=== PATIENT | male | born 1935 | race Caucasian/White ===

== ENCOUNTER 2018-07-24 17:18 | Emergency (ER) | payer MEDICARE, OTHER ==
[2018-07-24 17:27] VITALS: BP 134/80
--- NOTE | 2018-07-24 17:55 | EDM.PDOC ---
ED HPI GENERAL MEDICAL PROBLEM - General Chief Complaint: Genitourinary Problem Stated Complaint: HEMATURIA Time Seen by Provider: 07/24/18 17:30 Source of Information: Reports: Patient History Limitations: Reports: No Limitations - History of Present Illness INITIAL COMMENTS - FREE TEXT/NARRATIVE: 82 YO WM presents to ER with 1 day history of painless hematuria. Pt reports he' s had 2 episodes of pink tinged urine since 2pm today. Pt denies any abdominal pain, no back pain, no urine frequency or urgency. Pt reports he takes Xarelto due to Afib. Pt denies any epistasis, no bloody stools and no skin changes or bruising. Pt denies fever/chills, no nausea/vomiting. Onset: Today Onset Date: 07/24/18 Onset Time: 14:00 Location: Reports: Generalized Severity: Mild Improves with: Reports: None Worsens with: Reports: None Associated Symptoms: Reports: No Other Symptoms - Related Data Allergies Allergy/AdvReac Type Severity Reaction Status Date / Time penicillin Allergy Hives Verified 07/24/18 18:37 Home Meds: Home Meds Alendronate [Fosamax] 70 mg PO RUFFIN@0600 02/24/15 [History] Dutasteride [Avodart] 0.5 mg PO BEDTIME 02/24/15 [History] Fluticasone/Salmeterol [Advair 100-50 Diskus] 1 puff INH QAM 02/24/15 [History] Multivitamin [Multi-Vitamin Daily] 1 tab PO QAM 02/24/15 [History] Ranitidine [Zantac] 150 mg PO BEDTIME 02/24/15 [History] Vit C/Alcides Ac/Lut/Copper/ZnOx [Preservision Lutein Softgel] 1 cap PO BID [History] Rivaroxaban [Xarelto] 20 mg PO DAILY@1800 #90 tablet 04/25/18 [Rx] Calcium Carbonate/Vitamin D3 [Os-Oli 500+D] 1 each PO BIDMEALS 05/12/18 [History ] Furosemide [Lasix] 10 mg PO DAILY 05/12/18 [History] Albuterol [Ventolin HFA] 1 puff INH Q4H PRN 07/24/18 [History] Carvedilol [Coreg] 25 mg PO DAILY 07/24/18 [History] Carvedilol [Coreg] 50 mg PO BEDTIME 07/24/18 [History] DULoxetine [Cymbalta] 30 mg PO DAILY 07/24/18 [History] Digoxin 125 mcg PO DAILY@1200 07/24/18 [History] Escitalopram [Lexapro] 10 mg PO DAILY 07/24/18 [History] Lisinopril 2.5 mg PO DAILY 07/24/18 [History] cephALEXin [Keflex] 500 mg PO Q8H #21 cap 07/24/18 [Rx] Past Medical History HEENT History: Reports: Cataract, Impaired Vision Other HEENT History: bottom partial. Cardiovascular History: Reports: Afib, Hypertension Other Cardiovascular History: heart disease Respiratory History: Reports: Sleep Apnea Other Respiratory History: CPAP Gastrointestinal History: Reports: Chronic Constipation, Chronic Diarrhea, Colon Polyp, Diverticulosis Other Gastrointestinal History: begnign neoplaslm of colon Genitourinary History: Reports: BPH Other Genitourinary History: hypertrophy of prostate without urinary obstruction and other lower urinary tract symptoms (LUTS) Musculoskeletal History: Reports: Arthritis, Back Pain, Chronic, Fracture Other Musculoskeletal History: post-polio syndrome, use of cane and scooter Psychiatric History: Reports: Depression Endocrine/Metabolic History: Reports: Obesity/BMI 30+ Oncologic (Cancer) History: Reports: None - Infectious Disease History Infectious Disease History: Reports: Chicken Pox, Measles, Mumps, Shingles Other Infectious Disease History: POLIO WHEN 17 YEARS OLD - Past Surgical History HEENT Surgical History: Reports: Cataract Surgery Cardiovascular Surgical History: Reports: None Respiratory Surgical History: Reports: None GI Surgical History: Reports: Colonoscopy, EGD, Esophageal Dilatation Male Surgical History: Reports: None Musculoskeletal Surgical History: Reports: Arthroscopic Knee Social & Family History - Family History Family Medical History: Noncontributory - Caffeine Use Caffeine Use: Reports: Coffee, Soda Other Caffeine Use: coffee daily. regular pop ED ROS GENERAL - Review of Systems Review Of Systems: See Below Constitutional: Reports: No Symptoms HEENT: Reports: No Symptoms Respiratory: Reports: No Symptoms Cardiovascular: Reports: No Symptoms Endocrine: Reports: No Symptoms GI/Abdominal: Denies: Abdominal Pain, Black Stool, Bloody Stool, Hematochezia, Melena, Nausea, Vomiting : Reports: Hematuria. Denies: Dysuria, Flank Pain, Frequency, Pain, Urgency, Urinary Retention Musculoskeletal: Reports: No Symptoms Skin: Reports: No Symptoms Neurological: Reports: No Symptoms Psychiatric: Reports: No Symptoms Hematologic/Lymphatic: Reports: No Symptoms Immunologic: Reports: No Symptoms ED EXAM, RENAL/ - Physical Exam Exam: See Below Exam Limited By: No Limitations General Appearance: Alert, WD/WN, No Apparent Distress Ears: Normal External Exam, Normal Canal, Hearing Grossly Normal, Normal TMs Nose: Normal Inspection, Normal Mucosa, No Blood Throat/Mouth: Normal Inspection, Normal Lips, Normal Teeth, Normal Gums, Normal Oropharynx, Normal Voice, No Airway Compromise Head: Atraumatic, Normocephalic Neck: Normal Inspection, Supple, Non-Tender, Full Range of Motion Respiratory/Chest: No Respiratory Distress, Lungs Clear, Normal Breath Sounds, No Accessory Muscle Use, Chest Non-Tender Cardiovascular: Normal Peripheral Pulses, No Edema, No Gallop, No JVD, No Murmur , No Rub, Irregularly Irregular GI/Abdominal: Normal Bowel Sounds, Soft, Non-Tender, No Organomegaly, No Distention, No Abnormal Bruit, No Mass Back Exam: Normal Inspection, Full Range of Motion, NT Extremities: Normal Inspection, Normal Range of Motion, Non-Tender, Normal Capillary Refill, No Pedal Edema Neurological: Alert, Oriented, CN II-XII Intact, Normal Cognition, Normal Gait, Normal Reflexes, No Motor/Sensory Deficits Psychiatric: Normal Affect, Normal Mood Skin Exam: Warm, Dry, Intact, Normal Color, No Rash Course - Vital Signs Last Recorded V/S: Last Vital Signs Temp 36.6 C 07/24/18 17:24 Pulse 88 07/24/18 17:24 Resp 20 07/24/18 17:24 BP 134/80 07/24/18 17:24 Pulse Ox 96 07/24/18 17:24 - Orders/Labs/Meds Orders: Active Orders 24 hr Category Date Time Status BASIC METABOLIC PANEL,BMP [CHEM] Stat Lab 07/24/18 17:30 Results Labs: Laboratory Tests 07/24/18 07/24/18 07/24/18 Range/Units 17:30 17:30 18:15 WBC 7.21 (5.00-10.00) 10^3/uL RBC 4.51 (4.50-6.00) 10^6/uL Hgb 14.2 (13.0-17.0) g/dL Hct 41.8 (40.0-52.0) % MCV 92.7 H (82.0-92.0) fL MCH 31.5 H (27.0-31.0) pg MCHC 34.0 (32.0-36.0) g/dL RDW 14.2 (11.5-14.5) % Plt Count 127 L (150-400) 10^3/uL MPV 11.0 H (7.4-10.4) fL Immature Gran % (Auto) 0.3 (0.0-5.0) % Neut % (Auto) 70.4 H (50.0-70.0) % Lymph % (Auto) 14.1 L (20.0-40.0) % Starke % (Auto) 11.1 H (2.0-8.0) % Eos % (Auto) 4.0 H (1.0-3.0) % Baso % (Auto) 0.1 (0.0-1.0) % Immature Gran # (Auto) 0.02 (0.00-0.50) 10^3/uL Neut # (Auto) 5.07 (2.50-7.00) 10^3/uL Lymph # (Auto) 1.02 (1.00-4.00) 10^3/uL Starke # (Auto) 0.80 (0.10-0.80) 10^3/uL Eos # (Auto) 0.29 (0.10-0.30) 10^3/uL Baso # (Auto) 0.01 (0.00-0.10) 10^3/uL Sodium 144 (138-146) mmol/L Potassium 3.6 (3.5-4.9) mmol/L Chloride 101 (98-109) mmol/L Carbon Dioxide 27 (24-29) mmol/L Anion Gap 19.6 H (5-15) mmol/L BUN 23 (8-26) mg/dL Creatinine 0.8 (0.6-1.3) mg/dL Est Cr Clr Drug Dosing 73.51 mL/min Estimated GFR (MDRD) > 60 mL/min Glucose 121 H (70-105) mg/dL Specimen Type Urincc Urine Color Yellow (YELLOW) Urine Appearance Slightly cloudy H (CLEAR) Urine pH 5.5 (5.0-9.0) Ur Specific [place] 1.025 (1.005-1.030) Urine Protein Negative (NEGATIVE) mg/dL Urine Glucose (UA) Negative (NEGATIVE) mg/dL Urine Ketones Negative (NEGATIVE) mg/dL Urine Occult Blood Large H (NEGATIVE) Urine Nitrite Negative (NEGATIVE) Urine Bilirubin Negative (NEGATIVE) Urine Urobilinogen 0.2 (0.2-1.0) E.U./dL Ur Leukocyte Esterase Negative (NEGATIVE) Urine RBC Semi-packed (0-5) /HPF Urine WBC 0-5 (0-5) /HPF Ur Epithelial Cells Rare /LPF Urine Bacteria Few (NONE TO FEW) /HPF Departure - Departure Time of Disposition: 18:36 Disposition: Home, Self-Care 01 Condition: Good Clinical Impression: UTI, Urinary tract infectious disease, Hematuria syndrome - Discharge Information Prescriptions: cephALEXin [Keflex] 500 mg PO Q8H #21 cap Instructions: Urine Culture and Sensitivity Testing, Urinary Tract Infection, Adult, [id number], Hematuria, Adult Referrals: Cortney Angel MD [Primary Care Provider] - Forms: ED Department Discharge Additional Instructions: 1. discharge home 2. urine C and S 3. keflex 500mg PO Q8 x 7 days 4. follow up in clinic for recheck and culture results 5. return to ER for worsening symptoms - My Orders Last 24 Hours: My Active Orders 07/24/18 17:30 BASIC METABOLIC PANEL,BMP [CHEM] Stat - Assessment/Plan Last 24 Hours: My Active Orders 07/24/18 17:30 BASIC METABOLIC PANEL,BMP [CHEM] Stat Assessment:: 1. painless hematuria 2. possible UTI Plan: 1. discharge home 2. urine C and S 3. keflex 500mg PO Q8 x 7 days 4. follow up in clinic for recheck and culture results 5. return to ER for worsening symptoms
[2018-07-24 18:09] LABS: ANION GAP 19.6 mmol/L (5-15)
[2018-07-24 18:11] LABS: CHLORIDE,CL 101 mmol/L (98-109); SODIUM,NA 144 mmol/L (138-146)
[2018-07-24] MEDS ORDERED: cefTRIAXone 1 GM Vial IVPUSH SCH (18:45)
== END 2018-07-24 19:00 | disposition home or self-care (01) ==
LOC: KA.ED 17:18
DX: N39.0 Urinary tract infection, site not specified (principal); I48.91 Unspecified atrial fibrillation; I10 Essential (primary) hypertension; Z88.0 Allergy status to penicillin; Z79.899 Other long term (current) drug therapy; Z87.891 Personal history of nicotine dependence
CPT/HCPCS: 80048; 81001; 85025; 87086; 96374; 99283; J0696

== ENCOUNTER 2020-08-07 07:01 | Day surgery (SDC) | payer MEDICARE, OTHER ==
[~2020-08-07 07:01] MED LIST: Lactated Ringers 1,000 ML IV SCH; Sodium Chloride 0.9% 10 ML Syringe FLUSH PRN
[2020-08-07] MEDS ORDERED: ceFAZolin 1 GM Vial ONE (07:52)
[2020-08-07] MEDS ORDERED: Bupivacaine 0.5%/EPINEPHrine 1:200,000 30 ML SDV ONE ×2 (07:52→09:08)
[2020-08-07] MEDS ORDERED: fentaNYL 100 MCG/2 ML SDV ONE (08:21)
[2020-08-07] MEDS ORDERED: Propofol 200 MG/20 ML SDV ONE ×3 (08:21→10:07)
[2020-08-07] MEDS ORDERED: Glycopyrrolate 0.2 MG/ML SDV ONE (08:24)
[2020-08-07] MEDS ORDERED: Ketamine 200 MG/20 ML MDV ONE (08:53)
[2020-08-07] MEDS ORDERED: Gentamicin 40 MG/ML 2 ML Vial ONE (08:53)
[2020-08-07] MEDS ORDERED: Sodium Chloride 0.9% 100 ML ONE (08:53)
[2020-08-07] MEDS ORDERED: Propofol 200 MG/20 ML SDV IV ONE (09:00)
[2020-08-07] MEDS ORDERED: Bupivacaine 0.5%/EPINEPHrine 1:200,000 30 ML SDV INFILT ONE ×2 (09:06)
--- NOTE | 2020-08-07 10:33 | PCM.OPNOTE ---
- General Post-Op/Procedure Note Date of Surgery/Procedure: 08/07/20 Operative Procedure(s): Right inguinal herniorrhaphy. Findings: Large indirect and direct hernias noted. Pre Op Diagnosis: Large right inguinal hernia. Anesthesia Technique: Local, Moderate Sedation Primary Surgeon: Cortney Angel Drain/Tube Comments:: 12 Centimeter Jackie drain. Condition: Stable Free Text/Narrative:: INFORMED CONSENT: The patient is here today for elective Rt inguinal herniorrhaphy. The operative procedure, anesthesia and risks of both are completely explained to the patient. These include infection, pain, bleeding, recurrence, numbness and other unknown complications. The patient wished to proceed. The patient was kept in the supine position and the Rt inguinal area was thoroughly prepped and draped in the usual fashion. An incision was made over the Rt inguinal area, parallel to the inguinal ligament. The skin incision was deepened through the subcutaneous tissue, deep fascia and the external oblique was opened along the line of the skin incision. The cord structures were identified and kept out of harms way. We also identified the ilioinguinal nerve and the inguinal branch of the genitofemoral nerve. These two structures were kept out of harms way as well. We then dissected the medial portion of the cord and there was a fairly significant hernial sac which was opened. The contents were mostly omental tissue that was pushed back into the abdominal cavity. A high ligation of the sac was performed with 0 silk sutures. The excess sac was excised and sent away for histology. Palpation of the medial portion of the floor indicated a defect. A Marlex mesh was then cut down to size and placed to fortify the defect of the floor and the direct portion of the hernia. The mesh was attached to the conjoined tendon superiorly, Cayden's ligament medially and the reflected portion of the inguinal ligament inferiorly. The wound was irr igated, small bleeders were cauterized and the external oblique was closed over the cord structures using running 0 silk sutures. The subcutaneous tissue was closed with 0 Polysorb suture and the skin was closed using 4.0 Polysorb suture. A 12 cm [place] drain was placed in the subcutaneous tissue and brought out through the lateral edge of the skin incision. Stainless to clips were used to approximate the skin. A Sterile pressure dressing was applied, the patient tolerated the procedure well and there were no operative complications. Blood loss was negligible. Sponge, needle and instrument count was correct. The patient was transferred to the recovery room in excellent condition.
[2020-08-07] MEDS ORDERED: Glycopyrrolate 0.2 MG/ML SDV IVPUSH ONE (11:00)
[2020-08-07 11:37] VITALS: BP 140/88; PULSE 68
== END 2020-08-07 12:00 | disposition home or self-care (01) ==
LOC: KA.SDS 07:01
PROVIDERS: ATTEND Family Medicine
DX: K40.90 Unilateral inguinal hernia, without obstruction or gangrene, not specified as recurrent (principal); D69.6 Thrombocytopenia, unspecified; I42.8 Other cardiomyopathies; G14 Postpolio syndrome; M16.9 Osteoarthritis of hip, unspecified; G47.33 Obstructive sleep apnea (adult) (pediatric); G89.29 Other chronic pain; E66.9 Obesity, unspecified; I50.22 Chronic systolic (congestive) heart failure; I48.0 Paroxysmal atrial fibrillation; Z98.890 Other specified postprocedural states; Z87.891 Personal history of nicotine dependence; Z68.30 Body mass index [BMI] 30.0-30.9, adult; Z79.899 Other long term (current) drug therapy; Z79.01 Long term (current) use of anticoagulants; Z88.0 Allergy status to penicillin
CPT/HCPCS: 00830; 36415; 85049; 88302; C1781; J1580; J2704; J3490; J7120

== ENCOUNTER 2021-03-26 07:04 | Day surgery (SDC) | payer MEDICARE, OTHER ==
[2021-03-26] MEDS ORDERED: Propofol 200 MG/20 ML SDV IV ONE (07:05)
[2021-03-26 07:49] LABS: ANION GAP 10.2 mmol/L (5-15); CHLORIDE,CL 110 mmol/L (98-107); SODIUM,NA 143 mmol/L (136-145)
[2021-03-26] MEDS ORDERED: Lidocaine 1% 20 ML MDV ONE (07:55)
[2021-03-26] MEDS ORDERED: Ketamine 200 MG/20 ML MDV ONE (08:22)
[2021-03-26] MEDS ORDERED: Midazolam 1 MG/ML 2 ML SDV ONE (08:22)
[2021-03-26] MEDS ORDERED: Propofol 200 MG/20 ML SDV ONE ×2 (08:22→09:05)
[2021-03-26] MEDS ORDERED: Lidocaine 1% 20 ML MDV INJECT ONE (08:30)
[2021-03-26] MEDS ORDERED: ceFAZolin 1 GM Vial ONE (08:41)
--- NOTE | 2021-03-26 09:59 | PCM.OPNOTE ---
- General Post-Op/Procedure Note Date of Surgery/Procedure: 03/26/21 Operative Procedure(s): Circumcision Pre Op Diagnosis: Phimosis and difficulty urination Post-Op Diagnosis: As above Anesthesia Technique: MAC Primary Surgeon: Cortney Angel Complications: None Condition: Good Free Text/Narrative:: Preoperative diagnosis: Phimosis, difficulty urination Postoperative diagnosis: As above Performed: Circumcision Informed consent is obtained for the patient regarding this procedure. All possible complications were discussed. Patient is on anticoagulants. These were held for the last 3 days. The patient was taken to the operating room and kept in the supine position. MAC anesthesia was administered. Genitals were thoroughly prepped and draped in the usual fashion. A skin marking pencil was used to delineate the portion of the skin that would be removed. Xylocaine 1% was used for anesthesia purposes. The foreskin was quite tight. We then used combination of sharp excision and cautery to remove the foreskin along the circumferential margin. The dorsal veins were ligated with 4-0 Polysorb. Also ventral vein in a similar fashion. The mucocutaneous junction was sutured with several 4-0 Polysorb sutures. Inspection revealed no active bleeding. No complications were encountered. A sterile Vaseline gauze was applied over the incision. The patient tolerated procedure well. Blood loss is negligible. Complications none. He was transferred to the recovery room in excellent condition.
[2021-03-26 12:09] VITALS: BP 120/66; PULSE 70
== END 2021-03-26 11:45 | disposition home or self-care (01) ==
LOC: KA.SDS 07:04
PROVIDERS: ATTEND Family Medicine
DX: N47.1 Phimosis (principal); R39.198 Other difficulties with micturition; G47.33 Obstructive sleep apnea (adult) (pediatric); E66.9 Obesity, unspecified; I48.0 Paroxysmal atrial fibrillation; I50.22 Chronic systolic (congestive) heart failure; Z79.899 Other long term (current) drug therapy; Z88.0 Allergy status to penicillin; Z68.31 Body mass index [BMI] 31.0-31.9, adult
CPT/HCPCS: 00920; 36415; 80048; 85025; 93005; J0690; J2250; J2704; J7120

== ENCOUNTER 2022-11-02 16:05 | Emergency (ER) | payer MEDICARE, OTHER ==
[2022-11-02 16:25] VITALS: BP 122/60; PULSE 99
[2022-11-02] MEDS ORDERED: methylPREDNISolone Sodium Succinate 40 MG/1 ML SDV IM ONE (17:12)
[2022-11-02] MEDS ORDERED: Ketorolac 30 MG/ML SDV IM ONE (17:12)
[2022-11-02] MEDS ORDERED: Cyclobenzaprine 10 MG Tab PO ONE (17:14)
== END 2022-11-02 17:35 | disposition home or self-care (01) ==
LOC: KA.ED 16:05
DX: M47.812 Spondylosis without myelopathy or radiculopathy, cervical region (principal); M12.811 Other specific arthropathies, not elsewhere classified, right shoulder; I48.91 Unspecified atrial fibrillation; I11.0 Hypertensive heart disease with heart failure; I50.9 Heart failure, unspecified; E66.9 Obesity, unspecified; Z68.27 Body mass index [BMI] 27.0-27.9, adult; Z88.0 Allergy status to penicillin; Z79.899 Other long term (current) drug therapy; Z79.01 Long term (current) use of anticoagulants; Z87.891 Personal history of nicotine dependence
CPT/HCPCS: 72040; 73030; 96372; 99283; A9270; J1885; J2920; 99284